=== PATIENT | female | born 1975 | race Two or more races ===

== ENCOUNTER 2019-02-12 08:25 | Emergency (ER) | payer MEDICAID ==
[2019-02-12] MEDS ORDERED: MORPHINE SULFATE INJ 4 MG/ML DISP.SYRIN ONE (08:52)
[2019-02-12] MEDS ORDERED: ONDANSETRON 4 MG TAB.RAPDIS ONE (08:52)
[2019-02-12] MEDS ORDERED: MORPHINE SULFATE INJ 2 MG/ML DISP.SYRIN IM ONE (09:00)
[2019-02-12] MEDS ORDERED: ONDANSETRON 4 MG TAB.RAPDIS SL ONE (09:00)
== END 2019-02-12 10:09 | disposition home or self-care (01) ==
DX: S76.012A Strain of muscle, fascia and tendon of left hip, initial encounter (principal); S60.221A Contusion of right hand, initial encounter; M79.604 Pain in right leg; Z98.890 Other specified postprocedural states; V09.9XXA Pedestrian injured in unspecified transport accident, initial encounter; Y93.89 Activity, other specified; Y92.488 Other paved roadways as the place of occurrence of the external cause; Y99.8 Other external cause status
CPT/HCPCS: 73130; 73503; 73552; 73564; 96372; 99283; J2270; Q0162